=== PATIENT | female | born 1950 | race Caucasian/White ===

== ENCOUNTER 2019-11-13 13:29 | Inpatient (IN) | payer MEDICARE, SELFPAY ==
[2019-11-13] VITALS (15 sets, daily range): BP systolic 117–184; BP diastolic 67–144; PULSE 48–64; RESP 12–22; TEMP 36.7–36.9; O2SAT 93–99; BMI 22.4
--- NOTE | 2019-11-13 | CT_ITS ---
WS: [id number] CT HEAD NONCONTRAST HISTORY: STROKE LIKE SYMPTOMS TECHNIQUE: Contiguous axial imaging performed through the brain in 2.5 mm imaging. Bone and soft tiss ue windows. Sagittal and coronal reformats reviewed. All CT scans at [facility] use at ast one of these dose optimization techniques: automated exposure control; mA and/or kV adjustment pe r patient size (includes targeted exams where dose is matched to clinical indication); or iterative r econstruction. DLP: 686.06 mGy-cm. COMPARISON: 02/21/2019 No acute intracranial hemorrhage, midline shift or mass effect. Mild atrophy and prior remote lacunar infarct in the posterior LEFT frontal lobe. Ventricles: Normal size with no hydrocephalus. No inferior displacement of cerebellar tonsils. Paranasal sinuses: As visualized are clear. Mastoid air cells: Well pneumatized. Calvarium and scalp: Skull is intact with no soft tissue edema or swelling. Notified Thomas Zimmer DO at 11/13/2019 1:[address]/CT head wo con* [id number] IMPRESSION: 1. No acute intracranial hemorrhage or edema. 2. Mild atrophy and remote posterior LEFT frontal lacunar infarct.
--- NOTE | 2019-11-13 13:37 | ED_ITS ---
Entered by Denise Strauss, acting as scribe for Thomas Zimmer DO HPI - Neuro Symptoms/Deficit General: Chief Complaint: Neuro Symptoms/Deficit Stated Complaint: Stroke symptoms Time Seen by Provider: 11/13/19 13:45 Source: patient and family Mode of arrival: wheelchair Limitations: no limitations History of Present Illness: HPI Narrative: 68 yo female presents with stroke like symptoms. per spouse the pt was doing laundry then she had a hard time finding her words so they got in the car and drove to ED. per spouse the pt symptoms got better then worse by the time she got to the ED. pt is tearful. spouse denies any other symptoms. Onset (ago): hour(s) Last Observed Normal: 12:31 Timing confirmed by: family member Location: speech Severity: moderate Quality: constant Relieving factors: none Exacerbating factors: none Context: sudden onset Associated symptoms: Deny chest pain, malaise, nausea or vomiting Review of Systems General: Reports: 10 or more systems reviewed and unremarkable except in HPI and below Const: Denies: fever, chills, body aches, change in appetite, fatigue or mal aise ENMT: Denies: throat pain, ear pain, nasal discharge or nasal congestion Card: Denies: chest pain, edema, shortness of breath on exertion or shortness of breath when lying down Resp: Denies: shortness of breath, productive cough or non-productive cough GI: Denies: abdominal pain, nausea, vomiting, vomiting blood, coffee grounds in vomit, diarrhea, constipation, bloating, blood in stool or black tarry stool : Denies: flank pain, difficulty urinating, painful urination, urinary frequency or urinary urgency Skin/Breast: Denies: rash or itching Neuro: Reports: other (coulgnt form words) PFS ED PFSH: Medical History (Updated 11/15/19 @ 00:00 by ) HLD (hyperlipidemia) Hypothyroidism Surgical History H/O thyroidectomy Hx of tubal ligation Family History Mother Stroke Sister Stroke Social History Smoking and tobacco status: never smoked Alcohol intake: current Alcohol intake frequency: few times a week Alcohol type: wine Lives independently: Yes Marital status: NIH stroke score NIHSS: Level Of Consciousness - 1a: 0 Level Of Consciousness Questions - 1b: Both Correct Level Of Consciousness Commands - 1c: Both Correct Best Gaze - 2: Normal Visual Huerta - 3: No Visual Loss Facial Palsy - 4: Normal Motor Arm Right - 5: No Drift Motor Arm Left - 5: No Drift Motor Leg Right - 6: No Drift Motor Leg Left - 6: No Drift Limb Ataxia - 7: Absent Sensory - 8: Normal Best Language - 9: Mild/Moderate Aphasia Dysarthia - 10: Mild/Moderate Dysarthia Extinction And Inattention - 11: 0 Score: Total Score: 2 Physical Exam Const: COMMON NORMALS: no apparent distress GENERAL APPEARANCE: cooperative and comfortable ORIENTATION/CONSCIOUSNESS: Yes awake, Yes oriented to person, Yes oriented to place and Yes oriented to time HENMT: COMMON NORMALS: normocephalic, head/scalp atraumatic, hearing grossly normal bilaterally, external ears normal, EAC's normal, TM's normal bilaterally, nasal mucous membranes and turbinates normal, moist oral mucous membranes and oropharynx normal HEAD & SCALP: normocephalic and atraumatic NOSE: nasal mucous membranes and turbinates normal EXTERNAL EAR: Yes external ears normal EXTERNAL AUDITORY CANAL: EAC's normal TYMPANIC MEMBRANE: TM's normal bilaterally Eye: COMMON NORMALS: PERRL, EOMs intact bilaterally, conjunctivae normal and no scleral icterus CONJUNCTIVA: Yes conjunctivae normal PUPIL: Yes PERRL Neck/C-Spine: COMMON NORMALS: full ROM, no lymphadenopathy, supple and no JVD Lymph: LYMPHATIC: no lymphadenopathy noted and no lymphedema noted Resp: COMMON NORMALS: normal respiratory effort, no retractions, no use of accessory muscles and clear to auscultation bilaterally AUSCULTATION: clear to auscultation bilaterally Cardio: COMMON NORMALS: no JVD, regular rate, regular rhythm and no murmurs RATE: regular rate RHYTHM: regular rhythm GI: COMMON NORMALS: soft to palpation and no hepatosplenomegaly AU SCULTATION: Yes normoactive bowel sounds PALPATION: Yes soft, No tender, No guarding and Yes no hepatosplenomegaly Extremity: COMMON NORMALS: normal to inspection, normal capillary refill, no clubbing, cyanosis or edema, no calf tenderness and no pedal edema Neuro: SENSORIUM/ORIENTATION: Yes oriented to person, Yes oriented to place and Yes oriented to time Skin: COMMON NORMALS: no rashes or lesions noted GENERAL SKIN EXAM: no rashes or lesions noted Course ED course: Patient appears to have had a mild stroke. Dr. Hagen came and seen the patient did a stroke scoring and she advised giving TPA. TPA was admitted per protocols and patient be admitted to the hospitalist. Vital Signs: Vital signs: Vital Signs Temperature 97.9 F 11/14/19 15:29 Pulse Rate 63 11/14/19 15:29 Respiratory Rate 20 H 11/14/19 15:29 Blood Pressure 122/64 11/14/19 15:29 Pulse Oximetry 97 11/14/19 15:29 MDM - Neuro Symptoms/Deficit Lab Data: Labs: Lab Results 11/13/19 11/13/19 11/13/19 Range/Units 13:35 13:35 13:35 WBC 5.2 (4.0-10.0) 10^3/ uL RBC 4.72 (4.1-5.3) 10^6/u L Hgb 14.6 (11.5-15.3) g/dL Hct 44.4 (37.0-47.0) % MCV 94.1 (81-99) fL MCH 30.9 (28.0-34.0) pg MCHC 32.9 (30.0-36.0) g/dL RDW 11.9 L (12.1-15.1) % Plt Count 241 (130-400) 10^3/c mm MPV 9.7 (7.4-10.4) fL Neut % (Auto) 55.5 % Lymph % (Auto) 30.5 % Bartow % (Auto) 8.8 % Eos % (Auto) 4.2 % Baso % (Auto) 0.8 % Neut # (Auto) 2.9 (1.8-7.7) 10^3/u L Lymph # (Auto) 1.6 (0.8-4.8) 10^3/u L Bartow # (Auto) 0.5 (0.2-0.9) 10^3/u L Eos # (Auto) 0.2 (0.0-0.8) 10^3/u L Baso # (Auto) 0.0 (0.0-0.1) 10^3/u L Nucleated RBC % (a uto) 0 % Nucleated RBCs # 0.0 /100WBC PT 14.30 H (10.5-13.3) SECO NDS INR 1.08 (0.8-1.2) APTT 31.7 (23.9-36.7) SECO NDS Sodium 141 (136-145) mmol/L Potassium 4.3 (3.5-5.1) mmol/L Chloride 103 (98-107) mmol/L Carbon Dioxide 32 H (22-29) mmol/L Anion Gap 10.3 (5-19) BUN 17 (8-23) mg/dL Creatinine 1.1 H (0.5-0.9) mg/dL GFR Calculation 49.1 L (90-130) mL/min Glucose 122 H (65-115) mg/dL POC Glucose (70-110) mg/dL Estimat Average Gl ucose Hemoglobin A1c (4.0-6.0) % Calculated Osmolal ity 290 (285-295) mOsm/k g Calcium 9.6 (8.5-10.5) mg/dL Total Bilirubin 0.8 (0.15-1.2) mg/dL AST 27 (0-32) U/L ALT 20 (0-33) U/L Alkaline Phosphata se 108 H (35-105) IU/L Total Protein 7.9 (6.6-8.7) g/dL Albumin 4.4 (3.5-5.2) g/dL Globulin 3.5 (1.3-4.6) g/dL TSH (0.27-4.20) uIU/ mL Urine Color (Yellow) Urine Appearance (CLEAR) Urine pH (5-7) Ur Specific Gravit y (1.005-1.030) Urine Protein (Negative) Urine Glucose (UA) (Normal) Urine Ketones (Negative) Urine Blood (Negative) Urine Nitrate (Negative) Urine Bilirubin (NEGATIVE) Urine Urobilinogen (Negative) mg/dL Ur Leukocyte Stacie ase (Negative) Urine RBC (0-2) /hpf Urine WBC (0-5) /hpf Ur Squamous Epith Cells (0-5) Amorphous Sediment Urine Bacteria (NONE) Urine Opiates Scre en (Negative) ng/mL Ur Barbiturates Sc reen (Negative) ng/mL Ur Phencyclidine S crn (Negative) ng/mL Ur Amphetamines Sc reen (Negative) ng/mL U Benzodiazepines Scrn (Negative) ng/mL Urine Cocaine Scre en (Negative) ng/mL U Marijuana (THC) Screen (Negative) ng/mL 11/13/19 11/13/19 11/13/19 Range/Units 13:35 13:48 13:55 WBC (4.0-10.0) 10^3/ uL RBC (4.1-5.3) 10^6/u L Hgb (11.5-15.3) g/dL Hct (37.0-47.0) % MCV (81-99) fL MCH (28.0-34.0) pg MCHC (30.0-36.0) g/dL RDW (12.1-15.1) % Plt Count (130-400) 10^3/c mm MPV (7.4-10.4) fL Neut % (Auto) % Lymph % (Auto) % Bartow % (Auto) % Eos % (Auto) % Baso % (Auto) % Neut # (Auto) (1.8-7.7) 10^3/u L Lymph # (Auto) (0.8-4.8) 10^3/u L Bartow # (Auto) (0.2-0.9) 10^3/u L Eos # (Auto) (0.0-0.8) 10^3/u L Baso # (Auto) (0.0-0.1) 10^3/u L Nucleated RBC % (a uto) % Nucleated RBCs # /100WBC PT (10.5-13.3) SECO NDS INR (0.8-1.2) APTT (23.9-36.7) SECO NDS Sodium (136-145) mmol/L Potassium (3.5-5.1) mmol/L Chloride (98-107) mmol/L Carbon Dioxide (22-29) mmol/L Anion Gap (5-19) BUN (8-23) mg/dL Creatinine (0.5-0.9) mg/dL GFR Calculation (90-130) mL/min Glucose (65-115) mg/dL POC Glucose 95 (70-110) mg/dL Estimat Average Gl ucose 120 Hemoglobin A1c 5.8 (4.0-6.0) % Calculated Osmolal ity (285-295) mOsm/k g Calcium (8.5-10.5) mg/dL Total Bilirubin (0.15-1.2) mg/dL AST (0-32) U/L ALT (0-33) U/L Alkaline Phosphata se (35-105) IU/L Total Protein (6.6-8.7) g/dL Albumin (3.5-5.2) g/dL Globulin (1.3-4.6) g/dL TSH 1.18 (0.27-4.20) uIU/ mL Urine Color (Yellow) Urine Appearance (CLEAR) Urine pH (5-7) Ur Specific Gravit y (1.005-1.030) Urine Protein (Negative) Urine Glucose (UA) (Normal) Urine Ketones (Negative) Urine Blood (Negative) Urine Nitrate (Negative) Urine Bilirubin (NEGATIVE) Urine Urobilinogen (Negative) mg/dL Ur Leukocyte Stacie ase (Negative) Urine RBC (0-2) /hpf Urine WBC (0-5) /hpf Ur Squamous Epith Cells (0-5) Amorphous Sediment Urine Bacteria (NONE) Urine Opiates Scre en (Negative) ng/mL Ur Barbiturates Sc reen (Negative) ng/mL Ur Phencyclidine S crn (Negative) ng/mL Ur Amphetamines Sc reen (Negative) ng/mL U Benzodiazepines Scrn (Negative) ng/mL Urine Cocaine Scre en (Negative) ng/mL U Marijuana (THC) Screen (Negative) ng/mL 11/13/19 11/13/19 Range/Units 14:46 14:46 WBC (4.0-10.0) 10^3/ uL RBC (4.1-5.3) 10^6/u L Hgb (11.5-15.3) g/dL Hct (37.0-47.0) % MCV (81-99) fL MCH (28.0-34.0) pg MCHC (30.0-36.0) g/dL RDW (12.1-15.1) % Plt Count (130-400) 10^3/c mm MPV (7.4-10.4) fL Neut % (Auto) % Lymph % (Auto) % Bartow % (Auto) % Eos % (Auto) % Baso % (Auto) % Neut # (Auto) (1.8-7.7) 10^3/u L Lymph # (Auto) (0.8-4.8) 10^3/u L Bartow # (Auto) (0.2-0.9) 10^3/u L Eos # (Auto) (0.0-0.8) 10^3/u L Baso # (Auto) (0.0-0.1) 10^3/u L Nucleated RBC % (a uto) % Nucleated RBCs # /100WBC PT (10.5-13.3) SECO NDS INR (0.8-1.2) APTT (23.9-36.7) SECO NDS Sodium (136-145) mmol/L Potassium (3.5-5.1) mmol/L Chloride (98-107) mmol/L Carbon Dioxide (22-29) mmol/L Anion Gap (5-19) BUN (8-23) mg/dL Creatinine (0.5-0.9) mg/dL GFR Calculation (90-130) mL/min Glucose (65-115) mg/dL POC Glucose (70-110) mg/dL Estimat Average Gl ucose Hemoglobin A1c (4.0-6.0) % Calculated Osmolal ity (285-295) mOsm/k g Calcium (8.5-10.5) mg/dL Total Bilirubin (0.15-1.2) mg/dL AST (0-32) U/L ALT (0-33) U/L Alkaline Phosphata se (35-105) IU/L Total Protein (6.6-8.7) g/dL Albumin (3.5-5.2) g/dL Globulin (1.3-4.6) g/dL TSH (0.27-4.20) uIU/ mL Urine Color Yellow (Yellow) Urine Appearance Clear (CLEAR) Urine pH 5 (5-7) Ur Specific Gravit y 1.020 (1.005-1.030) Urine Protein Neg (Negative) Urine Glucose (UA) Norm (Normal) Urine Ketones Negative (Negative) Urine Blood Neg (Negative) Urine Nitrate Negative (Negative) Urine Bilirubin Neg (NEGATIVE) Urine Urobilinogen Norm (Negative) mg/dL Ur Leukocyte Stacie ase 1+ H (Negative) Urine RBC None (0-2) /hpf Urine WBC 15-25 H (0-5) /hpf Ur Squamous Epith Cells 10-15 H (0-5) Amorphous Sediment Not Reportable Urine Bacteria 1+ H (NONE) Urine Opiates Scre en Negative (Negative) ng/mL Ur Barbiturates Sc reen Negative (Negative) ng/mL Ur Phencyclidine S crn Negative (Negative) ng/mL Ur Amphetamines Sc reen Negative (Negative) ng/mL U Benzodiazepines Scrn Negative (Negative) ng/mL Urine Cocaine Scre en Negative (Negative) ng/mL U Marijuana (THC) Screen Negative (Negative) ng/mL Discharge Plan Discharge Admit Provider: Kleber Fernandes Condition: Stable Discharge Orders: Discharge Order (Routine); Ordered 11/14/19 Ordered By: Kleber Fernandes Discharge Diet: Cardiac Discharge Activity: Increase activity as tolerated and As per PT/OT instructions Discharge Date/Time: 11/13/19 20:38 Coding Level of Care Code ED Smasher Hand for Chg Fwd Exam Comprehensive The documentation recorded by the Carlos A lweis Bridget Annette, accurately reflects the service I personally performed and the decisions made by Mesha melchor Curtis L, DO Nov 13, 2019 13:29
[2019-11-13] MEDS: labetalol 5 mg/mL SDV 20mL 10 MG IVP (13:47)
--- NOTE | 2019-11-13 14:09 | PC.NURSE ---
TPA BOLUS WAS 6.9MLS GIVEN OVER 1 MINUTE. WASTED 23.8MLS WASTED
--- NOTE | 2019-11-13 14:15 | P.PNCC_ITS ---
Stroke Alert Activation ED Arrival Date: 11/13/19 ED Arrival Time: 13:29 ED Physican at Bedside: 13:35 Last Known Normal/at Baseline: < 1 hour ago Other Last Known Well Infomation: I was called for stroke alert and immediately called the emergency department at 1335. I was informed that the patient was newly arrived and under the evaluation of Dr. Salvador. I asked to be called as soon as the state of the patient made it clear whether or not she was indicated to have a stroke. The inventory control coordinator call me at 1344 and informed me that the patient had new onset of a aphasia less than 1 hour ago. I came directly to the emergency room and stop to review her CAT scan on the monitor. I performed an NIH stroke scale while the inventory control coordinator administered labetalol because the patient's blood pressure was 140 diastolic. The room lights were dimmed and she was kept in a comfortable position. Her NIH stroke scale score was 11 because of right visual field cut, expressive and receptive a aphasia. She did not have a motor deficit. I spoke with her and with her about the risks and benefits of TPA. By then her blood pressure had come down to 140/90 and she received bolus of TPA at 1356. Her said that her last known normal time was 1245 or possibly as late as 1300 so she received TPA within an hour and 10 minutes of onset of symptoms. Stroke Alert Activated by: Triage Stroke Alert Activation Time: 13:35 Stroke MD @ Bedside Time: 13:35 NIH Stroke Scale Time: 13:45 NIH stroke score NIHSS: Level Of Consciousness - 1a: 0 Level Of Consciousness Questions - 1b: One Correct Level Of Consciousness Commands - 1c: One Correct Best Gaze - 2: Normal Visual Huerta - 3: Partial Hemianopia Facial Palsy - 4: Normal Motor Arm Right - 5: No Drift Motor Arm Left - 5: No Drift Motor Leg Right - 6: No Drift Motor Leg Left - 6: No Drift Limb Ataxia - 7: Absent Sensory - 8: Normal Best Language - 9: Mild/Moderate Aphasia Extinction And Inattention - 11: 0 Stroke Alert Data/Treatment Time to CT of Head: 13:39 CT Impression: Normal, Reviewed by me Stroke Risk Factors: hypertension (Normally not hypertensive) tPA Started Time: tPA Started - Time: 13:56 tPA Admin Prior to Arrival: No Patient & Family Educated on: Cause of Stroke, Risk Factors, Treament Plan, Prognosis, Stroke Education Booklet and tPA Risks/Benefits Standardized Stroke Orders Used: Yes Critical Care Time Critical Care Time: 30 - 74 mins A&P Assessment and plan (1) Left acute arterial ischemic stroke, MCA (middle cerebral artery): Acute stroke left middle cerebral artery, most likely embolic posterior branch with resultant receptive and expressive a aphasia and visual field cut. There may be anterior and posterior branch emboli based upon both receptive and expressive difficulty. She needs extensive cardiac evaluation because of lack of risk factors and should have 20-day event monitor as well as echocardiogram, outpatient VERONICA and MRI with MRA that can be done after discharge. I went over risk factors for stroke with the patient and her , went over the vasculature and took time to answer questions about TPA and anticipated testing. Status: Acute Code(s): I63.512 - Cerebral infarction due to unspecified occlusion or stenosis of left middle cerebral artery Coding Level of Care Code Acute Electric Wheelchair Repairer for Cesilia Kitchen Diagnoses Left acute arterial ischemic stroke, MCA (middle cerebral artery) I63.512
--- NOTE | 2019-11-13 14:21 | ECG_ITS ---
Measurements Intervals [place] Rate: 56 P: 50 MO: 153 QRS: -13 QRSD: 98 T: 20 QT: 447 QTc: 434 SINUS BRADYCARDIA WITH OCCASIONAL ECTOPIC PREMATURE COMPLEXES INCOMPLETE RIGHT BUNDLE BRANCH BLOCK [90+ ms QRS DURATION, TERMINAL R IN V1/V2, 40+ ms S IN I/aVL/V4/V5/V6] MINIMAL VOLTAGE CRITERIA FOR LVH, CONSIDER NORMAL VARIANT [MEETS CRITERIA IN OF: R(aVL), S(V1), R(V5), R(V5/V6)+S(V1)] ANTEROSEPTAL MYOCARDIAL INFARCTION , OF INDETERMINATE AGE [40+ ms Q WAVE IN V1-V4 V4] No previous ECG available for comparison Electronically Signed On 11-13-2019 19:25:11 CDT by Karthik Núñez M.D. [email or web address]
[2019-11-13 14:29] LABS: Basophils % 0.8 %; Eosinophils # 0.2 10^3/uL (0.0-0.8); Eosinophils % 4.2 %; Hematocrit 44.4 % (37.0-47.0); Hemoglobin 14.6 g/dL (11.5-15.3); Lymphocytes # 1.6 10^3/uL (0.8-4.8); Lymphocytes % 30.5 %; Mean Corpuscular HGB Conc 32.9 g/dL (30.0-36.0); Mean Corpuscular Hemoglobin 30.9 pg (28.0-34.0); Mean Corpuscular Volume 94.1 fL (81-99); Mean Platelet Volume 9.7 fL (7.4-10.4); Monocytes # 0.5 10^3/uL (0.2-0.9); Monocytes % 8.8 %; Neutrophils # 2.9 10^3/uL (1.8-7.7); Neutrophils % 55.5 %; Nucleated Red Blood Cells % 0 %; Platelet Count 241 10^3/cmm (130-400); Red Blood Count 4.72 10^6/uL (4.1-5.3); Red Cell Distribution Width 11.9 % (12.1-15.1); White Blood Count 5.2 10^3/uL (4.0-10.0)
[2019-11-13 14:37] LABS: INR 1.08 (0.8-1.2)
[2019-11-13 14:38] LABS: Partial Thromboplastin Time 31.7 SECONDS (23.9-36.7)
[2019-11-13 14:46] LABS: Alanine Aminotransferase 20 U/L (0-33); Albumin Level 4.4 g/dL (3.5-5.2); Alkaline Phosphatase 108 IU/L (35-105); Anion Gap 10.3 (5-19); Aspartate Amino Transferase 27 U/L (0-32); Blood Urea Nitrogen 17 mg/dL (8-23); Calcium 9.6 mg/dL (8.5-10.5); Carbon Dioxide 32 mmol/L (22-29); Chloride 103 mmol/L (98-107); Globulin 3.5 g/dL (1.3-4.6); Glomerular Filtration Rate 49.1 mL/min (90-130); Glucose 122 mg/dL (65-115); Osmolality Calculated 290 mOsm/kg (285-295); Potassium 4.3 mmol/L (3.5-5.1); Sodium 141 mmol/L (136-145); Total Bilirubin 0.8 mg/dL (0.15-1.2); Total Protein 7.9 g/dL (6.6-8.7)
[2019-11-13 14:56] LABS: Bilirubin Urine Neg (NEGATIVE); Blood Urine Neg (Negative); Glucose Urine UA Norm (Normal); Ketones Urine Negative (Negative); Nitrate Urine Negative (Negative); Protein Urine Neg (Negative); Urine Appearance Clear (CLEAR); Urine Color Yellow (Yellow); Urobilinogen Urine Norm (Negative); pH Urine 5 (5-7)
[2019-11-13 15:00] LABS: Add Urine Microscopic? YES
[2019-11-13 15:01] LABS: Leukocyte Esterase Urine 1+ (Negative)
[2019-11-13 15:04] LABS: WBC Urine 15-25 /hpf (0-5)
[2019-11-13 15:05] LABS: Amphetamines Screen Urine Negative (Negative); Bacteria Urine 1+; Barbiturates Screen Urine Negative (Negative); Benzodiazepines Screen Urine Negative (Negative); Cocaine Screen Urine Negative (Negative); Opiate Screen Urine Negative (Negative); PCP Screen Urine Negative (Negative); THC Screen Urine Negative (Negative)
[2019-11-13 15:06] LABS: Add Urine Culture? No
--- NOTE | 2019-11-13 16:09 | PC.NURSE ---
See stroke packet for neuro assessment.
--- NOTE | 2019-11-13 16:10 | PC.NURSE ---
See stroke packet for neuro assessment.
[2019-11-13 16:48] LABS: Glucose Point of Care 95 mg/dL (70-110)
--- NOTE | 2019-11-13 18:00 | PM.HP ---
Providers/Chief Complaint Admitting Physician: Kleber Fernandes Primary Care Provider: Giancarlo Bishop MD Chief Complaint: Stroke symptoms History of Present Illness Shauna Birmingham is a 68 year old pleasant lady with history of hyperlipidemia, on prophylactic 81 mg aspirin dose, hypothyroidism is being admitted after presenting with a word finding difficulty noticed by her earlier during the day, around 1 PM. She was assessed by neurology in ER with finding of NIHSS of 11 with right-sided visual deficit in addition to aphasia. Blood pressure was elevated on presentation, but came down with only conservative measures. CT of the head without bleeding. She underwent treatment with TPA, and is being admitted for post treatment monitoring. In the interim her symptoms of showed improvement. She is feeling better. Denies any headache. States that she is bothered by tightness of the blood pressure cuff. She reports history of CVA in her family including her mother and sister. She says that she was started on aspirin prophylactically by her doctor, and does not have history of CVA, although does not always take aspirin every time. Review of Systems Const: Denies: fever, chills, body aches or malaise Eyes: Denies: change in vision or eye redness ENMT: Denies: throat pain, oral sores/lesions or ear pain Card: Denies: chest pain, edema, pre-syncope or shortness of breath on exertion Resp: Denies: shortness of breath, productive cough, change in phlegm color or coughing up blood GI: Denies: abdominal pain, nausea, vomiting, diarrhea, constipation, blood in stool or black tarry stool : Denies: flank pain, urinary frequency or blood in urine Musc: Denies: back pain, joint swelling or redness Skin/Breast: Denies: rash, sores or new lesion Neuro: Reports: difficulty communicating thoughts; Denies: headache, numbness in extremities, weakness in extremities, dizziness, confusion or seizure-like activity Endo: Denies: excessive urination or excessive thirst Nick/Lymph: Denies: easy bleeding or purpura All/Imm: Denies: hives, throat swelling or tongue swelling Medications/Allergies Home Medications Medication Instructions Recorded Confirmed Last Taken Type atorvastatin 40 mg PO DAILY 11/13/19 11/13/19 11/12/19 History cetirizine [Zyrtec] 5 mg PO DAILY PRN 11/13/19 11/13/19 Unknown History levothyroxine 50 mcg PO DAILY 11/13/19 11/13/19 11/12/19 History Allergies Allergy/AdvReac Type Severity Reaction Status Date / Time No Known Allergies Allergy Verified 11/13/19 13:58 PFSH Acute PFSH: Medical History (Updated 11/13/19 @ 18:51 by Kleber Fernandes MD) HLD (hyperlipidemia) Hypothyroidism Surgical History H/O thyroidectomy Hx of tubal ligation Family History Mother Stroke Sister Stroke Social History Smoking and tobacco status: never smoked Alcohol intake: current Alcohol intake frequency: few times a week Alcohol type: wine Substance/Drug Use: never Lives independently: Yes Marital status: Vitals/I&O/Wt Last Vital Signs Temp 98.1 F 11/13/19 13:40 Pulse 56 L 11/13/19 17:27 Resp 16 11/13/19 15:47 BP 146/74 11/13/19 17:27 Pulse Ox 99 11/13/19 17:27 Weight last 48 hrs Weight 57.606 kg Physical Exam Const: COMMON NORMALS: no apparent distress and oriented x3 OTHER: Comfortable, pleasant. Cooperative. is at bedside. HENMT: COMMON NORMALS: oropharynx normal Neck/C-Spine: COMMON NORMALS: no JVD Resp: COMMON NORMALS: normal respiratory effort and clear to auscultation bilaterally AUSCULTATION: clear to auscultation bilaterally Cardio: COMMON NORMALS: no JVD, regular rhythm, S1 normal heart sound, S2 normal heart sound and no murmurs RHYTHM: regular rhythm HEART SOUNDS: S1 normal and S2 normal GI: COMMON NORMALS: normal to inspection, nondistended, normoactive bowel sounds, soft to palpation and non-tender PALPATION: Yes soft Extremity: COMMON NORMALS: no joint enlargement and no pedal edema Neuro: COMMON NORMALS: oriented x3 and moves all extremities OTHER: Still has mild to moderate a aphasia, although reports with improvement. Improvement in visual field deficits. Sensation intact. No drift. Full power and symmetrical bilaterally. No neglect. Skin: COMMON NORMALS: no rashes or lesions noted GENERAL SKIN EXAM: no rashes or lesions noted Data : 11/13/19 13:35 11/13/19 13:35 A&P Assessment and plan (1) Left acute arterial ischemic stroke, MCA (middle cerebral artery): Status post TPA. Admit to ICU for monitoring. Target blood pressure less than 180/105. Monitor on telemetry. Check A1c. Increase statin dose to 80 mg. Speech therapy assessment. Once 24 hours outside TPA, repeat CT head. Case discussed with neurologist. Continue aspirin. Add Plavix. Recommendation for additional outpatient work-up with MRI, MRA, cardiac monitoring, VERONICA. Follow-up with neurology in office. Status: Acute Code(s): I63.512 - Cerebral infarction due to unspecified occlusion or stenosis of left middle cerebral artery (2) Hypothyroidism: Status: Chronic Code(s): E03.9 - Hypothyroidism, unspecified (3) HLD (hyperlipidemia): Status: Chronic Code(s): E78.5 - Hyperlipidemia, unspecified Attestations Medical Necessity Statement*: Due to acute CVA with TPA administration admission of over 2 midnights is likely to be needed. Coding Level of Care Code Acute Liner Machine Operator for Chg Fwd Diagnoses Left acute arterial ischemic stroke, MCA (middle cerebral artery) I63.512 Hypothyroidism E03.9 HLD (hyperlipidemia) E78.5
--- NOTE | 2019-11-13 19:04 | PC.NURSE ---
Report called to Alfa Otoole, will call when room is ready.
[2019-11-13 19:17] LABS: Estmated Average Glucose 120; Hemoglobin A1C 5.8 % (4.0-6.0)
[2019-11-13] MEDS: sodium chloride 0.9% 1,000 ML 100 ML IV (21:13)
[2019-11-13 21:29] LABS: Thyroid Stimulating Hormone 1.18 uIU/mL (0.27-4.20)
[2019-11-13] MEDS: acetaminophen 325 mg Tablet 650 MG PO (22:42)
--- NOTE | 2019-11-13 22:46 | PC.NURSE ---
patient complains of a headache talked to Dr. Gallagher asked to give a bedside swallow test to ensure she could swallow oral medications for relief. gave patient spoonful of ice chips and then a few milliliters of water no issues noted no coughing gagging or difficulty gave patient 650mg of Tylenol PO still no issues. will continue to monitor
[2019-11-14] VITALS (24 sets, daily range): BP systolic 107–184; BP diastolic 58–92; PULSE 45–73; RESP 12–25; TEMP 36.6–37.1; O2SAT 93–98
[2019-11-14 04:21] LABS: Basophils % 0.6 %; Eosinophils # 0.1 10^3/uL (0.0-0.8); Eosinophils % 1.9 %; Hematocrit 39.4 % (37.0-47.0); Lymphocytes # 1.1 10^3/uL (0.8-4.8); Lymphocytes % 20.3 %; Mean Platelet Volume 10.2 fL (7.4-10.4); Monocytes # 0.4 10^3/uL (0.2-0.9); Monocytes % 7.1 %; Neutrophils # 3.7 10^3/uL (1.8-7.7); Neutrophils % 69.7 %; Nucleated Red Blood Cells % 0 %; Platelet Count 195 10^3/cmm (130-400); Red Blood Count 4.19 10^6/uL (4.1-5.3); Red Cell Distribution Width 11.9 % (12.1-15.1); White Blood Count 5.3 10^3/uL (4.0-10.0)
[2019-11-14 04:41] LABS: Anion Gap 14.8 (5-19); Blood Urea Nitrogen 13 mg/dL (8-23); Calcium 8.5 mg/dL (8.5-10.5); Carbon Dioxide 21 mmol/L (22-29); Chloride 107 mmol/L (98-107); Glomerular Filtration Rate 61.9 mL/min (90-130); Glucose 107 mg/dL (65-115); Osmolality Calculated 285 mOsm/kg (285-295); Potassium 3.8 mmol/L (3.5-5.1); Sodium 139 mmol/L (136-145)
[2019-11-14] MEDS: levothyroxine 50 mcg Tablet PO (07:38)
[2019-11-14] MEDS: sodium chloride 0.9% 1,000 ML 100 ML IV (07:39)
--- NOTE | 2019-11-14 07:42 | USCV_ITS ---
Vinnie Shauna Age: 68 Gender: F : 1950 Exam Date: 11/14/2019 08:01 Ordering Phys: Kleber Fernandes MD Technologist: Kylie Boyd [place]am Location[place] [facility] [place]ication: CVA Risk Factors: Previous Vascular Surgery: None Right Brachial BP: / Left Brachial BP: / Right Left Velocity (cm/s) Spectral Plaque Velocity (cm/s) Spectral Plaque Syst/Diast Broadening Syst/Diast Broadening 52.90/ 14.90 Prox CCA 59.80 / 17.00 46.20/ 13.10 Mid CCA 40.40 / 13.70 44.20/ 17.30 Distal CCA 41.70 / 8.90 44.50/ 16.20 Prox ICA 53.60 / 22.30 54.20/ 17.00 Mid ICA 54.40 / 20.90 50.10/ 21.80 Distal ICA 84.20 / 28.30 50.90 ECA 64.80 1.17 ICA/CCA 2.08 Antegrade Vertebral Antegrade 31.50/ 15.40 cm/s 50.70/ 9.70 cm/s Tri Subclavian Tri 78.40 65.50 CONCLUSIONS Right ICA stenosis <50%. Left ICA stenosis <50%. Normal antegrade Doppler flow noted in the right vertebral artery. Normal antegrade Doppler flow noted in the left vertebral artery. Gary Da Silva MD (Electronically Signed) Final Date: 14 November 2019 09:20 S
--- NOTE | 2019-11-14 13:30 | CT_ITS ---
WS: [id number] CT HEAD TECHNIQUE: Noncontrast CT of the head obtained from the skullbase to the vertex. CLINICAL INFORMATION: CVA COMPARISON: November 13, 2019 DLP: 690.[address] scans at [facility] use at least one of these dose optimization techniques: automat ed exposure control; mA and/or kV adjustment per patient size (includes targeted exams where dose is matched to clinical indication); or iterative reconstruction. FINDINGS: No evidence of intracranial hemorrhage or mass effect. Ventricular system and basal cisterns are lay nt. Wedge-shaped left parietal area of low-attenuation change extending to the cortex consistent with ischemia. This measures approximately 1.8 x 2.1 CM. Findings consistent with subacute ischemia. No s ignificant mass effect or midline shift. Chronic lacunar infarct left posterior frontal lobe unchange d. Paranasal sinuses and mastoid air cells well aerated. Intracranial vascular calcification.. CT/CT head wo con* [id number] IMPRESSION: 1. No evidence of intracranial hemorrhage 2. Wedge-shaped area of low-attenuation change in the left parietal lobe exten ding to the cortex is new from yesterday consistent with subacute ischemia. Thi s measures 2.1 x 1.8 cm. 3. Chronic infarct left posterior frontal lobe.
--- NOTE | 2019-11-14 14:40 | P.DS_ITS ---
Discharge Providers Date of Admission: 11/13/19 16:10 Date of Discharge: November 14, 2019 Attending Provider at Admission: Kleber Fernandes Attending Provider at Discharge: Kleber Fernandes Primary Care Provider: Giancarlo Bishop MD Diagnoses at Discharge Discharge Diagnosis (1) Left acute arterial ischemic stroke, MCA (middle cerebral artery): Status: Acute (2) Hypothyroidism: Status: Chronic (3) HLD (hyperlipidemia): Status: Chronic Reason for Visit Reason for Visit: Reason For Visit: Stroke symptoms Hospital Course Hospital Course: Very pleasant 68-year-old lady with history of hypothyroidism, HLD, on prophylactic aspirin 81 mg was admitted and managed after presenting with CVA, with sudden onset a aphasia and visual field deficit, with finding of NIHSS of 11 on presentation, CT head without bleeding. Was assessed by stroke team neurologist, and treated with TPA, with unremarkable course thereafter. With fairly good improvement in symptoms of a aphasia, only minimal residual, but with residual visual deficit. Per discussion with neurology started on dual antiplatelet at this time. For additional evaluation due to concern for possible cryptogenic stroke as recommended per neurology she is going to be set up with event monitor under supervision of Dr. Núñez, VERONICA, as well as MRI and MRA brain. Carotid Doppler in the hospital unremarkable. No evidence of atrial fibrillation. Her dose of statin is increased. Today she is feeling well, and happy to return home. There was no bleeding on follow-up CT of the head. She is referred to neurology in office for follow-up of the requested studies. She does also report occasional tinnitus, some hearing loss, and suggestion of follow-up with ENT, consideration of hearing test was suggested to her to be discussed with her primary care provider. She was told not to drive until peripheral visual kowalski can be reassessed at [facility]. Physical Exam Const: COMMON NORMALS: no apparent distress and oriented x3 OTHER: Comfortable, pleasant. Cooperative. is at bedside. HENMT: COMMON NORMALS: oropharynx normal Neck/C-Spine: COMMON NORMALS: no JVD Resp: COMMON NORMALS: normal respiratory effort and clear to auscultation bilaterally AUSCULTATION: clear to auscultation bilaterally Cardio: COMMON NORMALS: no JVD, regular rhythm, S1 normal heart sound, S2 normal heart sound and no murmurs RHYTHM: regular rhythm HEART SOUNDS: S1 normal and S2 normal GI: COMMON NORMALS: normal to inspection, nondistended, normoactive bowel sounds, soft to palpation and non-tender PALPATION: Yes soft Extremity: COMMON NORMALS: no joint enlargement and no pedal edema Neuro: COMMON NORMALS: oriented x3 and moves all extremities OTHER: Mild aphasia. Visual field deficits. Sensation intact. No drift. Full power and symmetrical bilaterally. No neglect. Skin: COMMON NORMALS: no rashes or lesions noted GENERAL SKIN EXAM: no rashes or lesions noted Discharge Data Data Completed and Pending: Completed Studies During Hospitalization Category Date Time Status CT head wo con* 7 0450 Routine Cat Scan 11/14/19 13:[address] head wo con* 7 0450 Urgent Cat Scan 11/13/19 Completed CV carotid duplex BI* [id number] Routine Ultrasound 11/14/19 07:42 Completed Labs from last 24 hours 11/14/19 11/14/19 11/13/19 03:50 03:50 14:46 WBC 5.3 RBC 4.19 Hgb 13.0 Hct 39.4 MCV 94.0 MCH 31.0 MCHC 33.0 RDW 11.9 L Plt Count 195 MPV 10.2 Neut % (Auto) 69.7 Lymph % (Auto) 20.3 Esmeralda % (Auto) 7.1 Eos % (Auto) 1.9 Baso % (Auto) 0.6 Neut # (Auto) 3.7 Lymph # (Auto) 1.1 Esmeralda # (Auto) 0.4 Eos # (Auto) 0.1 Baso # (Auto) 0.0 Nucleated RBC % (a uto) 0 Nucleated RBCs # 0.0 Sodium 139 Potassium 3.8 Chloride 107 Carbon Dioxide 21 L Anion Gap 14.8 BUN 13 Creatinine 0.9 GFR Calculation 61.9 L Glucose 107 POC Glucose Estimat Average Gl ucose Hemoglobin A1c Calculated Osmolal ity 285 Calcium 8.5 Total Bilirubin AST ALT Alkaline Phosphata se Total Protein Albumin Globulin TSH Urine Color Urine Appearance Urine pH Ur Specific Gravit y Urine Protein Urine Glucose (UA) Urine Ketones Urine Blood Urine Nitrate Urine Bilirubin Urine Urobilinogen Ur Leukocyte Stacie ase Urine RBC Urine WBC Ur Squamous Epith Cells Amorphous Sediment Urine Bacteria Urine Opiates Scre en Negative Ur Barbiturates Sc reen Negative Ur Phencyclidine S crn Negative Ur Amphetamines Sc reen Negative U Benzodiazepines Scrn Negative Urine Cocaine Scre en Negative U Marijuana (THC) Screen Negative 11/13/19 11/13/19 11/13/19 14:46 13:55 13:48 WBC RBC Hgb Hct MCV MCH MCHC RDW Plt Count MPV Neut % (Auto) Lymph % (Auto) Esmeralda % (Auto) Eos % (Auto) Baso % (Auto) Neut # (Auto) Lymph # (Auto) Esmeralda # (Auto) Eos # (Auto) Baso # (Auto) Nucleated RBC % (a uto) Nucleated RBCs # Sodium Potassium Chloride Carbon Dioxide Anion Gap BUN Creatinine GFR Calculation Glucose POC Glucose 95 Estimat Average Gl ucose Hemoglobin A1c Calculated Osmolal ity Calcium Total Bilirubin AST ALT Alkaline Phosphata se Total Protein Albumin Globulin TSH 1.18 Urine Color Yellow Urine Appearance Clear Urine pH 5 Ur Specific Gravit y 1.020 Urine Protein Neg Urine Glucose (UA) Norm Urine Ketones Negative Urine Blood Neg Urine Nitrate Negative Urine Bilirubin Neg Urine Urobilinogen Norm Ur Leukocyte Stacie ase 1+ H Urine RBC None Urine WBC 15-25 H Ur Squamous Epith Cells 10-15 H Amorphous Sediment Not Reportable Urine Bacteria 1+ H Urine Opiates Scre en Ur Barbiturates Sc reen Ur Phencyclidine S crn Ur Amphetamines Sc reen U Benzodiazepines Scrn Urine Cocaine Scre en U Marijuana (THC) Screen 11/13/19 11/13/19 13:35 13:35 WBC RBC Hgb Hct MCV MCH MCHC RDW Plt Count MPV Neut % (Auto) Lymph % (Auto) Esmeralda % (Auto) Eos % (Auto) Baso % (Auto) Neut # (Auto) Lymph # (Auto) Esmeralda # (Auto) Eos # (Auto) Baso # (Auto) Nucleated RBC % (a uto) Nucleated RBCs # Sodium 141 Potassium 4.3 Chloride 103 Carbon Dioxide 32 H Anion Gap 10.3 BUN 17 Creatinine 1.1 H GFR Calculation 49.1 L Glucose 122 H POC Glucose Estimat Average Gl ucose 120 Hemoglobin A1c 5.8 Calculated Osmolal ity 290 Calcium 9.6 Total Bilirubin 0.8 AST 27 ALT 20 Alkaline Phosphata se 108 H Total Protein 7.9 Albumin 4.4 Globulin 3.5 TSH Urine Color Urine Appearance Urine pH Ur Specific Gravit y Urine Protein Urine Glucose (UA) Urine Ketones Urine Blood Urine Nitrate Urine Bilirubin Urine Urobilinogen Ur Leukocyte Stacie ase Urine RBC Urine WBC Ur Squamous Epith Cells Amorphous Sediment Urine Bacteria Urine Opiates Scre en Ur Barbiturates Sc reen Ur Phencyclidine S crn Ur Amphetamines Sc reen U Benzodiazepines Scrn Urine Cocaine Scre en U Marijuana (THC) Screen Vitals: Last Vital Signs Temp 98.5 F 11/14/19 09:00 Pulse 52 L 11/14/19 14:00 Resp 18 11/14/19 14:00 BP 107/58 11/14/19 14:00 Pulse Ox 95 11/14/19 14:00 Discharge Plan Discharge Patient Disposition: Home, Self-Care Condition: Stable Prescriptions: New aspirin 81 mg tablet,delayed release (DR/EC) 81 mg PO DAILY Qty: 30 RF: 0 Plavix 75 mg tablet 75 mg PO DAILY Qty: 30 RF: 0 Continued Zyrtec 10 mg Tablet 5 mg PO DAILY PRN (Reason: ALLERGIES) RF: 0 levothyroxine 50 mcg tablet 50 mcg PO DAILY RF: 0 Changed atorvastatin 40 mg tablet 80 mg PO DAILY Qty: 60 RF: 0 Discharge Orders: Discharge Order (Routine); Ordered 11/14/19 Ordered By: Kleber Fernandes Other Ambulatory Orders: MR angio head wo con [id number] (Routine) Timeframe: 1 Week Facility: [facility] - Location: Radiology [facility] Ordered By: Kleber AU echo transesophageal (Routine) Timeframe: 1 Week Facility: [facility] - Location: Radiology Ordered By: Kleber AU cardiac event monitor (Routine) Timeframe: 1 Week Facility: [facility] - Location: Cardiac Diagnostic Laboratory Ordered By: Kleber Fernandes MR head wo/w con [id number] (Routine) Timeframe: 1 Week Facility: [facility] - Location: Radiology [facility] Ordered By: Kleber Fernandes Referrals: Betty Hagen MD [Physician] - 11/21/19 2:00 pm (CVA) Giancarlo Bishop MD [Primary Care Provider] - 11/20/19 1:50 pm (CVA) Discharge Diet: Cardiac Discharge Activity: Increase activity as tolerated and As per PT/OT instructions Patient Instructions: Aspirin (By mouth), Clopidogrel (By mouth), Heart Healthy Diet, Transesophageal Echocardiogram (GEN) Activity Restrictions/Additional Instructions: Do not drive until he can be reassessed by [facility] due to vision changes. If you experience any worsening of symptoms, any severe headache, or other abnormal symptoms, please seek medical attention immediately. He will be set up with monitor car operator, Dr. Núñez will be following up on this. Otherwise please follow-up with your neurologist Dr. Hagen, and with your primary care doctor regarding other studies which include MRI of your head and echocardiogram to assess for other risk factors of stroke. Discharge Date/Time: 11/14/19 15:45 Discharge Attestations Time Spent in Discharge Care*: greater than 30 min Quality Metrics Clinical Quality Measures During this hospital stay, did patient experience: Stroke Contraindication to Antithrombotic: Antithrombotic prescribed Contraindication to Anticoagulation: Overlap treatment not indicated Contraindication to Statin: Statin prescribed Coding Level of Care Code Acute Registered Vascular Technologist (Rvt) for Chg Fwd Diagnoses Left acute arterial ischemic stroke, MCA (middle cerebral artery) I63.512 Hypothyroidism E03.9 HLD (hyperlipidemia) E78.5
--- NOTE | 2019-11-14 15:37 | PC.OT ---
OT note: From chart review pt had TPA and had to wait until after 1356. Therapist available and attempted OT eval at 1535 and pt was being discharged.
--- NOTE | 2019-11-14 15:49 | PC.NURSE ---
discharge patient instructed on follow up appointments and follow up tests/procedures. New medications, and medication changes discussed with patient as well as follow up appointment. Patient verbalized understanding. Patient taken to personal vehicle via wheelchair. patient tolerated well.
--- NOTE | 2019-11-16 12:03 | PC.NURSE ---
TPA order Placed order into system per IT request due to order not flowing across when medication was pulled under override from [facility].
== END 2019-11-14 15:45 | disposition home or self-care (01) | DRG 63 ==
LOC: ER 15:08 → ICU 17:31
PROVIDERS: Admitting Provider Internal Medicine; Emergency Provider Family Medicine; Family Provider Family Medicine; PCP Family Medicine; Visit Provider Internal Medicine
DX: I63.512 Cerebral infarction due to unspecified occlusion or stenosis of left middle cerebral artery (principal); E03.9 Hypothyroidism, unspecified; R47.01 Aphasia; E78.5 Hyperlipidemia, unspecified; Z79.82 Long term (current) use of aspirin; R29.701 NIHSS score 1; H53.8 Other visual disturbances
CPT/HCPCS: 12345; 36415; 36416; 70450; 80048; 80053; 80306; 81001; 81003; 82962; 83036; 84443; 85025; 85610; 85730; 92522; 92610; 93005; 93880; 96105; 96375; 99284; J2997; J3490; J7030

== ENCOUNTER → 2019-11-21 13:55 | Outpatient (BNVA) | payer MEDICARE, SELFPAY | PROVIDERS: Family Provider Family Medicine; PCP Family Medicine; Referring Provider Internal Medicine; Visit Provider Specialist | DX: Z86.73 Personal history of transient ischemic attack (TIA), and cerebral infarction without residual deficits (principal) | CPT/HCPCS: 99205 ==

== ENCOUNTER 2019-11-24 13:29 | Outpatient (CLI) | payer MEDICARE, SELFPAY ==
--- NOTE | 2019-11-24 13:46 | MR_ITS ---
WS: [id number] MRA HEAD TECHNIQUE: Axial 3-D TOF images obtained with axial images and axial, sagittal, and coronal 2-D refor matted images. CLINICAL INFORMATION: CVA COMPARISON: None. FINDINGS: Distal vertebral arteries are patent. Basilar artery is patent. Persistent right REDRAWER. Normal va scularity to the REDRAWER territory bilaterally. Both ICAs are patent at the skull base. Normal vascularity to the HARIKA and MCA territories bilaterally . Patent anterior communicating artery. No evidence of high-grade proximal stenosis or aneurysm. T1 hyperintensity in the left parietal occipital infarct bed consistent with subacute blood products. Notified Dr. Xiao DIAZ at 11/24/2019 2:53 PM. MR/MR angio head wo con [id number] IMPRESSION: 1. No evidence of high-grade proximal stenosis or aneurysm. 2. Small amount of T1 hyperintensity in the left parietal occipital lobe consi stent with subacute blood products in the infarct bed.
--- NOTE | 2019-11-24 13:46 | MR_ITS ---
WS: [id number] MRI HEAD WITHOUT CONTRAST TECHNIQUE: Sagittal T1, T2 axial, T2 axial FLAIR, axial and coronal T1 images, axial susceptibility w eighted imaging, axial diffusion weighted images, and coronal T2 images were obtained. CLINICAL INFORMATION: CVA COMPARISON: CT November 14, 2019 FINDINGS: Cortical and subcortical serpiginous area of partially restricted diffusion involving the left pariet o-occipital junction. Small amount of associated hemosiderin. Small amount of T1 hyperintensity consi stent with a tiny amount of blood products. Findings consistent with acute to subacute ischemia. Mild associated edema. No significant mass effect or midline shift. Mild small vessel changes. Moderate parenchymal volume loss. Normal posterior fossa. Normal vascular flow voids at the skull base. No extra-axial fluid collections. Mild mucosal thickening ethmoid air cells. Small retention cyst or polyp right maxillary sinus measur ing 9.4 mm. MR/MR head wo con* [id number] IMPRESSION: 1. Partially restricted diffusion involving the left parietal occipital juncti on most consistent with acute to subacute ischemia. This corresponds to the fin dings in the prior CT. 2. Small amount of associated T1 hyperintensity and hemosiderin consistent wit h a small amount of blood products. 3. Mild associated edema in the area of suspected infarct. No significant mass effect or midline shift. 4. Mild small vessel changes with moderate parenchymal volume loss.
== END 2019-11-24 13:30 | disposition home or self-care (01) ==
LOC: RADWPI 13:34
PROVIDERS: Family Provider Family Medicine; PCP Family Medicine; Visit Provider Specialist
DX: I63.9 Cerebral infarction, unspecified (principal)
CPT/HCPCS: 70544; 70551

== ENCOUNTER 2019-12-22 14:40 | Outpatient (CLI) | payer MEDICARE, SELFPAY ==
--- NOTE | 2019-12-22 14:49 | USCV_ITS ---
Shauna Birmingham Age: 69 Gender: F : 1950 Exam Date: 12/22/2019 14:48 Ordering Phys: Betty Hagen MD Technologist: Exam Location: [facility] [place] Indication: CVA BP: 110 / 70 HR: Rhythm: Sinus Technical Quality: Fair MEASUREMENTS (Male / Female) Normal Values 2D ECHO LV Diastolic Diameter PLAX 4.7 cm 4.2 - 5.9 / 3.9 - 5.3 cm LV Systolic Diameter PLAX 4.1 cm IVS Diastolic Thickness 0.9 cm 0.6 - 1.0 / 0.6 - 0.9 cm IVS Systolic Thickness 1.1 cm LVPW Diastolic Thickness 1.0 cm 0.6 - 1.0 / 0.6 - 0.9 cm LVPW Systolic Thickness 1.2 cm LVOT Diameter 2.0 cm LV Ejection Fraction 2D Teich 30.2 % LV Ejection Fraction MOD 2C 60.7 % LV Ejection Fraction 2C AL 61.6 % LA Diameter 3.2 cm LA Width 4.5 cm LA Height 5.1 cm RA Width 4.0 cm RA Height 3.7 cm M-MODE LV Diastolic Diameter MM 4.9 cm 4.2 - 5.9 / 3.9 - 5.3 cm LV Systolic Diameter MM 4.1 cm LV Ejection Fraction MM Teich 35.4 % IVS Diastolic Thickness MM 0.6 cm 0.6 - 1.0 / 0.6 - 0.9 cm IVS Systolic Thickness MM 1.3 cm LVPW Diastolic Thickness MM 0.8 cm 0.6 - 1.0 / 0.6 - 0.9 cm LVPW Systolic Thickness MM 1.6 cm RV Diastolic Diameter MM 1.5 cm Aortic Annulus Diameter 3.1 cm LA Ao Ratio MM 1.0 MV E Point Septal Separation 1.9 cm DOPPLER AV Peak Velocity 89.0 cm/s LVOT Peak Velocity 86.0 cm/s AV Area Cont Eq vti 3.0 cm squared AV Area Cont Eq pk 3.1 cm squared MV Area PHT 3.4 cm squared Mitral E to A Ratio 1.5 MV E' Velocity 7.0 cm/s Mitral E to MV E' Ratio 10.2 Mitral E to LV E' Lateral Ratio 10.6 Mitral E to LV E' Septal Ratio 9.9 TR Peak Velocity 324.0 cm/s TR Peak Gradient 41.9 mmHg TV Peak E Velocity 101.0 cm/s Right Atrial Pressure 3.0 mmHg Pulmonary Artery Systolic Pressu 45.0 mmHg PV Peak Velocity 94.0 cm/s FINDINGS Left Ventricle Mild diffuse hypokinesia of the LV apex. Ejection fraction around 50% Right Ventricle Normal right ventricular size and systolic function. Right Atrium Right atrium is upper limit of normal size Left Atrium Mildly increased left atrial size. Mitral Valve Thickened mitral valve. Mild mitral valve regurgitation. Aortic Valve Thickened aortic valve. Tricuspid Valve Moderately severe tricuspid valve regurgitation. Pulmonic Valve No gross abnormalities noted Pericardium No pericardial effusion. Aorta Normal aortic annulus size. CONCLUSIONS Normal LV size with slightly diminished ejection fraction 50%. Wall motion normality as mentioned above. Mild biatrial enlargement Mildly increased left atrial size. Moderately severe eccentric tricuspid valve regurgitation. Thickened aortic and mitral valves. Estimated pulmonary artery peak systolic pressure of 42 mmHg There is no pericardial effusion. There are no intracardiac masses. There is no pericardial effusion. There are no intracardiac masses. There are no prior echocardiogram studies to compare. Dr Karthik Núñez MD FACC (Electronically Signed) Final Date: 25 Dec 2019 09:40 S
== END 2019-12-22 14:41 | disposition home or self-care (01) ==
LOC: RAD 14:44
PROVIDERS: Family Provider Family Medicine; PCP Family Medicine; Visit Provider Specialist
DX: I63.9 Cerebral infarction, unspecified (principal); I08.3 Combined rheumatic disorders of mitral, aortic and tricuspid valves
CPT/HCPCS: 93306

== ENCOUNTER → 2020-02-27 15:14 | Outpatient (BNVA) | payer MEDICARE, SELFPAY | PROVIDERS: Family Provider Family Medicine; PCP Family Medicine; Visit Provider Specialist | DX: I63.512 Cerebral infarction due to unspecified occlusion or stenosis of left middle cerebral artery (principal); I47.2 Ventricular tachycardia | CPT/HCPCS: 99215 ==

== ENCOUNTER 2021-03-06 12:02 | Outpatient (CLI) | payer MEDICARE, SELFPAY ==
--- NOTE | 2021-03-06 12:11 | XR_ITS ---
WS: [id number] Right hand, 3 views, 03/06/2021 Clinical Data: RIGHT HAND PAIN Comparison: Right hand, 02/21/2019. Findings: No fractures or dislocations are seen. The soft tissues are unremarkable. There is osteoa rthritis of the right first MCP joint.There is a healed fracture of the distal right fifth metacarpal . 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
== END 2021-03-06 12:03 | disposition home or self-care (01) ==
LOC: RAD 12:08
PROVIDERS: PCP Family Medicine
DX: M79.641 Pain in right hand (principal); M19.041 Primary osteoarthritis, right hand
CPT/HCPCS: 73130

== ENCOUNTER 2022-08-03 14:42 | Outpatient (CLI) | payer MEDICARE, SELFPAY ==
--- NOTE | 2022-08-03 15:00 | CTR_ITS ---
PROCEDURE INFORMATION: Exam: CT Neck With Contrast Exam date and time: 08/03/2022 3:07 PM Age: 71 years old Clinical indication: Mass, lump, or swelling in neck; Left; Prior surgery; Surgery type: Thyroid; Additional info: Neck mass, soft tissue CT of neck. History--soft tissue mass left side of neck x 2 months-bb TECHNIQUE: Imaging protocol: Computed tomography of the neck with contrast. Radiation optimization: All CT scans at this facility use at least one of these dose optimization techniques: automated exposure control; mA and/or kV adjustment per patient size (includes targeted exams where dose is matched to clinical indication); or iterative reconstruction. Contrast material: OMNIPAQUE 350; Contrast volume: 60 ml; Contrast route: INTRAVENOUS (IV); COMPARISON: MR head wo con* [id number] 11/24/2019 2:02 PM RADIATION DOSE METRICS: Total DLP (mGy-cm): 144.61 FINDINGS: Paranasal sinuses: The right maxillary sinus contains a small retention cyst measuring about 13 mm. Pharynx: No focal mucosal space suspicious lesion is noted. Larynx: Unremarkable. Epiglottis is unremarkable. Prevertebral and retropharyngeal spaces: Unremarkable. Salivary glands: Within normal limits. Glands are normal in size. Thyroid: Absent right lobe of thyroid. The left lobe of thyroid is large and mildly heterogenous. Lymph nodes: No bulky lymphadenopathy identified. Trachea: Visualized trachea is unremarkable. Lungs: Unremarkable as visualized. Bones/joints: Old moderate T4 compression. Vasculature: Diffuse vascular calcifications are visualized. Soft tissues: Unremarkable. No significant soft tissue swelling. CT/CT neck w con* [id number] IMPRESSION: 1. No acute process is identified. 2. At the left lower neck skin marker, there is no mass lesion identified. This is at the same level of the large left lobe of thyroid, however. Advise correlation. The right lobe of thyroid is absent. 3. A few chronic findings.
[2022-08-03] MEDS: iohexol 350 mg/mL 500 mL Btl (per mL) IV (15:38)
== END 2022-08-03 14:43 | disposition home or self-care (01) ==
PROVIDERS: PCP Family Medicine; Visit Provider Family Medicine
DX: R22.2 Localized swelling, mass and lump, trunk (principal); R61 Generalized hyperhidrosis
CPT/HCPCS: 70491; 71260; Q9967

== ENCOUNTER 2022-08-03 14:42 | Outpatient (CLI) | payer MEDICARE, SELFPAY ==
--- NOTE | 2022-08-03 14:30 | CTR_ITS ---
PROCEDURE INFORMATION: Exam: CT Chest With Contrast; Diagnostic Exam date and time: 08/03/2022 3:12 PM Age: 71 years old Clinical indication: Other: Mass neck; Prior surgery; Surgery type: Thyroid; Patient HX: History--soft tissue mass left side of neck x 2 months-bb; Additional info: Neck mass TECHNIQUE: Imaging protocol: Diagnostic computed tomography of the chest with contrast. Radiation optimization: All CT scans at this facility use at least one of these dose optimization techniques: automated exposure control; mA and/or kV adjustment per patient size (includes targeted exams where dose is matched to clinical indication); or iterative reconstruction. Contrast material: OMNIPAQUE 350; Contrast volume: 60 ml; Contrast route: INTRAVENOUS (IV); COMPARISON: CT neck w con* [id number] 08/03/2022 3:07 PM RADIATION DOSE METRICS: Total DLP (mGy-cm): 503.3 FINDINGS: Thyroid: Unchanged unilateral left thyroid measuring 3.9 x 1.9 x 4.2 cm. There are smaller confluent thyroid nodules with indistinct margins estimated to measure to 1.5 cm. The right lobe of the thyroid is absent. Lungs: The lungs are clear. No mass or pneumonia. Pleural spaces: Unremarkable. No pneumothorax. No pleural effusion. Heart: The left atrium is enlarged. Coronary arteries: Moderate calcified plaque in the coronary arteries. Lymph nodes: No lower cervical adenopathy. Vasculature: Scattered calcified plaque in the aortic arch. Liver: The visualized portions of the liver and spleen are unremarkable. Kidneys and ureters: Simple 1.5 cm right renal cyst. Bones/joints: Chronic healed manubrium fracture. Chronic T9 and T4 fractures without retropulsion. Soft tissues: Unremarkable. CT/CT chest w con* [id number] IMPRESSION: 1. Unilateral left thyroid with multiple solid nodules. This is most likely multinodular goiter. 2. No adenopathy. 3. Other chronic findings as described COMMENTS: Consistent with the [employer]'s Incidental Findings Committee white paper (J Am Riya Radiol 2018): Any incidental renal lesion less than 1 cm or classified as too small to characterize, or any incidental cystic renal lesion characterized as simple-appearing, is likely benign. No follow-up imaging is recommended for these lesions per consensus recommendations based on imaging criteria.
[2022-08-03] MEDS: iohexol 350 mg/mL 500 mL Btl (per mL) IV (15:40)
== END 2022-08-03 14:43 | disposition home or self-care (01) ==
LOC: RAD 14:43
PROVIDERS: PCP Family Medicine; Visit Provider Family Medicine
DX: R22.2 Localized swelling, mass and lump, trunk (principal); R61 Generalized hyperhidrosis
CPT/HCPCS: 71260; 80053; 84443; 85025; 85651; 86140; Q9967

== ENCOUNTER → 2022-09-07 13:58 | Outpatient (BNVA) | payer MEDICARE, SELFPAY | PROVIDERS: PCP Family Medicine; Visit Provider Internal Medicine Cardiovascular Disease | DX: R00.2 Palpitations (principal); E78.5 Hyperlipidemia, unspecified; Z86.73 Personal history of transient ischemic attack (TIA), and cerebral infarction without residual deficits | CPT/HCPCS: 99213; Q3014 ==

== ENCOUNTER 2023-04-29 09:33 | Emergency (ER) | payer MEDICARE, SELFPAY ==
[2023-04-29 09:36] VITALS: BP 132/82; PULSE 63; RESP 16; TEMP 36.7; O2SAT 98; BMI 22.1
--- NOTE | 2023-04-29 09:55 | XR_ITS ---
WS: [id number] Right clavicle, 2 views, 04/29/2023 Clinical Data: trauma Comparison: None. Findings: There is an anterior subcoracoid dislocation of the right humeral head. The clavicle is intact with n o fractures or dislocations. Impression: Anterior subcoracoid dislocation of the right humeral head.
--- NOTE | 2023-04-29 09:55 | XR_ITS ---
WS: [id number] Right shoulder, 3 views, 04/29/2023 Clinical Data: trauma Comparison: None. Findings: There is an anterior subcoracoid dislocation of the right humeral head. The AC joint is intact. The a djacent right ribs and right scapula are unremarkable. Impression: Anterior subcoracoid dislocation of right humeral head.
--- NOTE | 2023-04-29 10:04 | W.ED.EXTPRO ---
HPI - Extremity Problem General: Chief complaint: Extremity Injury, Upper Stated complaint: injured collar bone Time Seen by Provider: 04/29/23 09:35 Source: patient Mode of arrival: ambulatory History of Present Illness: 72-year-old female who presents to the emergency room with complaints of left shoulder pain. She had tripped and fallen landed on her left shoulder. Did not strike her head no loss consciousness complaining of severe pain in the right shoulder. No other injuries. MD Complaint: joint pain Onset (ago): minute(s) Pain Consistency: constant Location: right (Shoulder) Quality: sharp Radiation: distal Relieving factors: rest Exacerbating factors: range of motion and palpation Associated symptoms: Deny chest pain, fever(s) or short of breath Review of Systems Const: Denies: fever(s) or chills Card: Denies: chest pain Resp: Denies: dyspnea GI: Denies: abdominal pain PFS ED PFSH: Medical History CVA (cerebral vascular accident) HLD (hyperlipidemia) Hypothyroidism Thyroid goiter Surgical History H/O thyroidectomy Hx of tubal ligation Family History Mother Stroke Sister Stroke Other Cancer Diabetes Hypertension Denies family history of CAD (coronary artery disease) Social History Smoking and tobacco status: never smoked Alcohol intake: current Alcohol intake frequency: few times a week Alcohol type: wine Substance/Drug Use: never Lives independently: Yes Marital status: Physical Exam Const: GENERAL APPEARANCE: cooperative ORIENTATION/CONSCIOUSNESS: Yes awake, Yes oriented to person, Yes oriented to place and Yes oriented to time HENMT: COMMON NORMALS: normocephalic, atraumatic and hearing grossly normal bilaterally HEAD & SCALP: normocephalic and atraumatic Resp: COMMON NORMALS: normal respiratory effort, No retractions, No use of accessory muscles and clear to auscultation bilaterally AUSCULTATION: clear to auscultation bilaterally Cardio: COMMON NORMALS: regular rate, regular rhythm and No murmurs present (Cardio) RATE: regular rate RHYTHM: regular rhythm Extremity: OTHER: Neurovascular right arm is intact on palpation and physical exam appears to have an anterior dislocation Neuro: SENSORIUM/ORIENTATION: Yes oriented to person, Yes oriented to place and Yes oriented to time Skin: COMMON NORMALS: no rashes or lesions noted GENERAL SKIN EXAM: no rashes or lesions noted Procedures Orthopedic Joint Reduction Joint #1: Time Out Performed: Yes Side: right Joint Reduction Location: shoulder Analgesia: procedural sedation Shoulder Technique Used (if applicable): traction/counter-traction Post-reduction neuro exam: intact Post-reduction vascular: intact Post Reduction X-Ray Obtained: Yes Post Reduction X-Ray Results: reduced Splint Applied: Yes Patient Tolerated Procedure: well Procedural Sedation Indication: fracture/dislocation reduction Fentanyl dose (mcg): 99 Midazolam dose (mg): 3 Complications: hypoxia Interventions: oxygen applied, airway repositioned, suctioning, assist by BVM, non-invasive ventilation and other (Nasopharyngeal airway applied) Additional Comments: Within 1 minute of the fentanyl patient went into respiratory arrest which was recognized immediately and [id number] with oxygen supplement mentation was applied. Patient responded well to this. After nasopharyngeal airway was applied we are able to bag the patient back up to 100% until she recovered well enough to breathe spontaneously on her own. Course Vital Signs: Vital signs: Vital Signs Temperature 98.0 F 04/29/23 09:36 Pulse Rate 63 04/29/23 14:06 Respiratory Rate 15 04/29/23 14:06 Blood Pressure 128/80 04/29/23 10:43 Pulse Oximetry 95 04/29/23 14:06 Oxygen Delivery Me thod Room Air 04/29/23 12:39 MDM - Extremity (Nontraumatic) Medical Decision Making Right shoulder reduced. Patient did have some difficulty with conscious sedation she was monitored she did fully recover she has been placed in a shoulder immobilizer. We will discharge patient home and have her follow-up with orthopedics pain medications given. Medical Records I reviewed the patient's medical records. Lab Data I reviewed the patient's lab results. Discharge Plan Discharge Patient Disposition: Home Clinical Impression: Dislocation of shoulder region Condition: Stable Prescriptions: New hydrocodone-acetaminophen 5-325 mg tablet 1 tab PO Q6H PRN (Reason: pain) Qty: 15 0RF No Action magnesium oxide 400 mg magnesium capsule 400 mg PO DAILY Qty: 90 3RF aspirin 325 mg tablet 325 mg PO DAILY Qty: 90 3RF triamcinolone acetonide 0.5 % cream 1 applic topical BID Qty: 15 2RF atorvastatin 40 mg tablet 40 mg PO DAILY Qty: 90 3RF levothyroxine 50 mcg tablet 50 mcg PO DAILY Qty: 90 3RF Discharge Orders: Discharge ED (Routine); Ordered 04/29/23 Ordered By: Thomas Zimmer Referrals: Giancarlo Bishop MD [Primary Care Provider] - Patient Instructions: Shoulder Dislocation (ED), Opioid Safety, Pain Management Activity Restrictions/Additional Instructions: You are seen today for a shoulder dislocation. This was reduced while you are in the ER you should wear the shoulder immobilizer until you follow-up with orthopedics. Case management make arrangements for follow-up with orthopedics. Coding Level of Care Code ED Financial Operations Clerk for Cesilia Kitchen
[2023-04-29 10:43] VITALS: BP 128/80; PULSE 67; RESP 17; O2SAT 100
[2023-04-29] MEDS: midazolam 1 mg/mL INJ 2 mL 3 MG IVP (10:43)
[2023-04-29] MEDS: fentaNYL 50 mcg/mL INJ 2mL 100 MCG IVP (10:43)
--- NOTE | 2023-04-29 10:56 | XR_ITS ---
WS: [id number] Right shoulder, 3 views, 04/29/2023, 1105 hours Clinical Data: Postreduction Comparison: Right shoulder, 04/29/2023, 1046 hours Findings: The anterior subcoracoid dislocation has been reduced. There are monitor leads on the chest wall. Impression: Reduction of anterior subcoracoid dislocation of the right shoulder.
--- NOTE | 2023-04-29 11:35 | PC.NURSE ---
200 mcg of fentanyl drawn up for concious sedation, only 100mcg used. wasted the other 100mcg with MARILEE Johnson
--- NOTE | 2023-04-29 12:04 | DCPLANNER ---
Addendum entered by Sherry Roche 04/30/23 09:32: Patient has a follow up appointment scheduled for Thursday, May 04, 2023 at 3:00 with Jordon Nick at ortho. Original Note: aquaculture farm manager had message to schedule a follow up appointment for patient with ortho. aquaculture farm manager sent patients information to the front office staff at ortho. Patients information will be printed and reviewed. Clinic will call patient with appointment information.
[2023-04-29] MEDS: ondansetron 2 mg/ML SDV 2 mL 4 MG IVP (12:09)
[2023-04-29 12:11] VITALS: PULSE 71; RESP 18; O2SAT 95
[2023-04-29 12:39] VITALS: PULSE 67; RESP 17; O2SAT 99
[2023-04-29 14:06] VITALS: PULSE 63; RESP 15; O2SAT 95
== END 2023-04-29 14:08 | disposition home or self-care (01) ==
PROVIDERS: Emergency Provider Family Medicine; PCP Family Medicine
DX: S43.004A Unspecified dislocation of right shoulder joint, initial encounter (principal); Z86.73 Personal history of transient ischemic attack (TIA), and cerebral infarction without residual deficits; E78.5 Hyperlipidemia, unspecified; W01.0XXA Fall on same level from slipping, tripping and stumbling without subsequent striking against object, initial encounter
CPT/HCPCS: 23650; 73000; 73030; 96374; 99152; 99285; J2250; J2405; J3010

== ENCOUNTER → 2023-05-04 15:06 | Outpatient (BNVA) | payer MEDICARE, SELFPAY | PROVIDERS: PCP Family Medicine; Referring Provider Family Medicine; Visit Provider Physician Assistant | DX: S43.004A Unspecified dislocation of right shoulder joint, initial encounter; X58.XXXA Exposure to other specified factors, initial encounter | CPT/HCPCS: 73030; 99203 ==

== ENCOUNTER 2023-05-19 13:20 | Outpatient (RCR) | payer MEDICARE, SELFPAY | END 2023-05-22 23:59 | disposition home or self-care (01) | LOC: SPT 13:20 | PROVIDERS: PCP Family Medicine; Visit Provider Physician Assistant | DX: S43.004D Unspecified dislocation of right shoulder joint, subsequent encounter (principal); X58.XXXD Exposure to other specified factors, subsequent encounter | CPT/HCPCS: 97161 ==

== ENCOUNTER 2023-05-25 12:53 | Outpatient (RCR) | payer MEDICARE, SELFPAY | END 2023-06-22 23:59 | disposition home or self-care (01) | LOC: SPT 12:53 | PROVIDERS: PCP Family Medicine; Visit Provider Physician Assistant | DX: S43.004D Unspecified dislocation of right shoulder joint, subsequent encounter (principal); X58.XXXD Exposure to other specified factors, subsequent encounter | CPT/HCPCS: 97110 ==

== ENCOUNTER → 2023-06-15 10:49 | Outpatient (BNVA) | payer MEDICARE, SELFPAY | PROVIDERS: PCP Family Medicine; Visit Provider Physician Assistant | DX: S43.004A Unspecified dislocation of right shoulder joint, initial encounter (principal); X58.XXXA Exposure to other specified factors, initial encounter | CPT/HCPCS: 99213 ==

== ENCOUNTER 2023-06-23 12:50 | Outpatient (CLI) | payer MEDICARE, SELFPAY ==
--- NOTE | 2023-06-23 13:11 | MM_ITS ---
WS: [id number] BILATERAL 3D TOMOSYNTHESIS DIGITAL SCREENING MAMMOGRAPHY WITH CAD CLINICAL INFORMATION: Z00.00 - Encounter for general adult medical examination ... HISTORY: Screening mammogram. No current complaints. COMPARISON: 2014 TECHNIQUE: Bilateral CC and MLO views. FINDINGS: The breasts are composed of heterogeneous fibroglandular density tissue, which can limit the detectio n of small underlying mass lesions. No suspicious mass, asymmetry, calcifications, or architectural d istortion. No evidence of malignancy. Dystrophic calcification RIGHT breast. IMPRESSION: MM/[place] [id number] BI-RADS: 2-Benign FOLLOW UP: 1 Year Follow-up Recommend return to annual screening mammography.
== END 2023-06-23 12:51 | disposition home or self-care (01) ==
LOC: RAD 12:50
PROVIDERS: PCP Family Medicine; Visit Provider Family Medicine
DX: Z12.31 Encounter for screening mammogram for malignant neoplasm of breast (principal)
CPT/HCPCS: 77063; 77067

== ENCOUNTER → 2023-09-22 14:30 | Outpatient (BNVA) | payer MEDICARE, SELFPAY | PROVIDERS: PCP Family Medicine; Visit Provider Family Medicine | DX: I63.512 Cerebral infarction due to unspecified occlusion or stenosis of left middle cerebral artery (principal); R61 Generalized hyperhidrosis; E04.9 Nontoxic goiter, unspecified | CPT/HCPCS: 80053; 80061; 84443 ==

== ENCOUNTER 2024-05-20 19:54 | Emergency (ER) | payer MEDICARE, SELFPAY ==
[2024-05-20 20:22] VITALS: BP 99/61; PULSE 57; RESP 16; TEMP 37.3; O2SAT 94; BMI 21.7
--- NOTE | 2024-05-20 20:30 | ECG_ITS ---
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 Measurements Intervals [place] Rate: 64 P: 61 KS: 144 QRS: -18 QRSD: 93 T: 19 QT: 408 QTc: 422 Interpretive Statements SINUS RHYTHM WITH FREQUENT SUPRAVENTRICULAR PREMATURE COMPLEXES INCOMPLETE RIGHT BUNDLE BRANCH BLOCK [90+ ms QRS DURATION, TERMINAL R IN V1/V2, 40+ ms S IN I/aVL/V4/V5/V6] ANTEROSEPTAL MYOCARDIAL INFARCTION , OF INDETERMINATE AGE [40+ ms Q WAVE IN V1-V4] Compared to ECG 11/13/2019 14:33:42 Sinus bradycardia no longer present Myocardial infarct finding still present Electronically Signed On 05-22-2024 18:50:06 CDT by Lloyd Gonzalez M.D. [email or web address]
--- NOTE | 2024-05-20 20:32 | XRR_ITS ---
PROCEDURE INFORMATION: Exam: XR Chest Exam date and time: 05/20/2024 8:50 PM Age: 73 years old Clinical indication: Cough and fever; Additional info: Cough, covid TECHNIQUE: Imaging protocol: Radiologic exam of the chest. Views: 1 view. COMPARISON: CT chest w con* [id number] 08/03/2022 3:12 PM FINDINGS: Lungs: No focal consolidation. Pleural spaces: No evidence of pneumothorax. No evidence of pleural effusion. Heart/Mediastinum: Cardiomediastinal silhouette is within normal limits. Bones/joints: No evidence of acute osseous abnormality. XR/XR chest 1V portable [id number] IMPRESSION: 1. No acute cardiopulmonary abnormality.
--- NOTE | 2024-05-20 20:56 | ED_ITS ---
HPI - SOB/Dyspnea 2 General: Chief Complaint: Shortness of Breath/Dyspnea Stated Complaint: covid +, SOB Time Seen by Provider: 05/20/24 20:56 History of Present Illness: HPI Narrative: 73-year-old female tested positive for C OVID on . Patient spouse states that they called the doctor's office and he had sent in a prescription for Paxlovid. Patient has been taking the medication but she continues to run a fever. brought her in to have her evaluated concerned that she may be filling up with fluid in her lungs. Patient reports that she has no shortness of breath or chest pain. Patient does have an occasional cough. Has been states that she sounds wheezy which is what concerned him. Related Data Previous Rx's Medication Instructions Recorded aspirin 325 mg tablet 325 mg PO DAILY #90 tabs 09/07/22 magnesium oxide 400 mg PO DAILY #90 caps 09/07/22 triamcinolone acetonide 0.5 % 1 applic topical BID #15 grams 12/30/22 topical cream hydrocodone 5 mg-acetaminophen 325 1 tab PO Q6H PRN pain #15 tabs 04/29/23 mg tablet prednisone 20 mg tablet 20 mg PO DAILY #15 tabs 06/15/23 levothyroxine 50 mcg tablet 50 mcg PO DAILY #90 tabs 09/02/23 atorvastatin 40 mg tablet 40 mg PO DAILY #90 tabs 09/20/23 ondansetron 4 mg disintegrating 4 mg PO Q8H PRN nausea and 05/20/24 tablet vomiting #10 tabs Allergies Allergy/AdvReac Type Severity Reaction Status Date / Time No Known Allergies Allergy Verified 06/15/23 10:58 Review of Systems 2 General: Reports: 10 or more systems reviewed and unremarkable except in HPI and below Resp: Reports: productive cough PFSH ED 2 PFSH: Medical History Thyroid goiter CVA (cerebral vascular accident) Hypothyroidism HLD (hyperlipidemia) Surgical History Hx of tubal ligation H/O thyroidectomy Family History Mother Stroke Sister Stroke Other Cancer Diabetes Hypertension Denies family history of CAD (coronary artery disease) Social History Smoking and tobacco/nicotine status: never used tobacco/nicotine Alcohol intake: current Alcohol intake frequency: few times a week Alcohol type: wine Substance/Drug Use: never Lives independently: Yes Marital status: Physical Exam 2 Const: COMMON NORMALS: alert HENMT: COMMON NORMALS: normocephalic HEAD & SCALP: normocephalic Neck/C-Spine: COMMON NORMALS: full ROM Resp: COMMON NORMALS: normal respiratory effort and clear to auscultation bilaterally AUSCULTATION: clear to auscultation bilaterally Cardio: COMMON NORMALS: regular rate and regular rhythm RATE: regular rate RHYTHM: regular rhythm GI: COMMON NORMALS: Soft to palpation and non-tender PALPATION: Yes Soft to palpation Back/Pelvis: COMMON NORMALS: thoracic and lumbar spine normal to inspection Extremity: COMMON NORMALS: no pedal edema Neuro: SENSORIUM/ORIENTATION: Yes alert Skin: COMMON NORMALS: turgor normal GENERAL SKIN EXAM: turgor normal Course 2 Vital Signs: Vital signs: Vital Signs Temperature 99.1 F 05/20/24 20:22 Pulse Rate 50 L 05/20/24 21:35 Respiratory Rate 16 05/20/24 21:35 Blood Pressure 96/60 05/20/24 21:35 Pulse Oximetry 95 05/20/24 21:35 Oxygen Delivery Me thod Room Air 05/20/24 21:35 MDM - SOB/Dyspnea Medical Decision Making 73-year-old female comes in today for complaints of COVID infection, mild confusion, and fever. states that when her fever was hide tonight she seemed kind of confused he is giving her Tylenol and she seems more appropriate now. Patient did have 1 emesis in the ER. Lungs are clear to auscultation. Vital signs note a 99/61 blood pressure, pulse 57, respirations 16, patient temperature was 99.1, patient is 94% on room air. CBC was unremarkable. CMP did note creatinine of 1.0, bun of 24, sodium 132, potassium 3.6. Chest x-ray was unremarkable except for some mild atelectasis in the left lower lung. Reviewed exam with patient with recommendation for treatment and follow-up. Patient reported understanding agreed to plan. Lab Data 05/20/24 21:34 05/20/24 21:34 Labs/Radiology: Laboratory Results WBC 6.68 10^3/uL (3.29-11.43) 05/20/24 21:34 RBC 4.03 10^6/uL (3.85-5.65) 05/20/24 21:34 Hgb 12.40 g/dL (11.27-16.99) 05/20/24 21:34 Hct 38.2 % (36-47) 05/20/24 21: MCV 94.8 fl (85-98) 05/20/24 21:34 MCH 30.8 pg (27-33) 05/20/24 21:34 MCHC 32.5 g/dL (30-55) 05/20/24 21:34 RDW 12.7 % (12.1-15.1) 05/20/24 21:34 Plt Count 156 10^3/cmm (157-399) L 05/20/24 21:34 MPV 9.4 fL (7.4-10.4) 05/20/24 21:34 Neut % (Auto) 78.9 % 05/20/24 21:34 Lymph % (Auto) 11.4 % 05/20/24 21:34 [place] % (Auto) 9.3 % 05/20/24 21:34 Eos % (Auto) 0.0 % 05/20/24 21:34 Baso % (Auto) 0.3 % 05/20/24 21:34 Neut # (Auto) 5.27 10^3/uL (1.8-7.7) 05/20/24 21:34 Lymph # (Auto) 0.8 10^3/uL (0.8-4.8) 05/20/24 21:34 [place] # (Auto) 0.6 10^3/uL (0.2-0.9) 05/20/24 21: Eos # (Auto) 0.0 10^3/uL (0.0-0.8) 05/20/24 21:34 Baso # (Auto) 0.0 10^3/uL (0.0-0.1) 05/20/24 21:34 Nucleated RBC % (auto) 0 % 05/20/24 21:34 Nucleated RBCs # 0.0 /100WBC 05/20/24 21:34 Sodium 132 mmol/L (136-145) L 05/20/24 21:34 Potassium 3.6 mmol/L (3.5-5.1) 05/20/24 21:34 Chloride 96 mmol/L (98-107) L 05/20/24 21:34 Carbon Dioxide 24 mmol/L (22-29) 05/20/24 21:34 Anion Gap 15.6 (5-19) 05/20/24 21:34 BUN 18 mg/dL (8-23) 05/20/24 21:34 Creatinine 1.0 mg/dL (0.5-0.9) H 05/20/24 21:34 GFR Calculation Not Reportable 05/20/24 21:34 Glucose 129 mg/dL (65-115) H 05/20/24 21:34 Calculated Osmolality 278 mOsm/kg (285-295) L 05/20/24 21:34 Lactic Acid 0.9 mmol/L (0.5-2.2) 05/20/24 21:34 Calcium 7.9 mg/dL (8.5-10.5) L 05/20/24 21:34 Total Bilirubin 0.6 mg/dL (0.15-1.2) 05/20/24 21:34 AST 19 U/L (0-32) 05/20/24 21:34 ALT 13 U/L (0-33) 05/20/24 21:34 Alkaline Phosphatase 69 U/L (35-105) 05/20/24 21:34 Total Protein 6.4 g/dL (6.6-8.7) L 05/20/24 21:34 Albumin 3.5 g/dL (3.5-5.2) 05/20/24 21:34 Globulin 2.9 g/dL (1.3-4.6) 05/20/24 21:34 XR interpretation done by ED provider, pending radiology final review Discharge Plan Discharge Patient Disposition: Home Clinical Impression: Bronchitis due to 2019-nCoV Condition: Stable Prescriptions: New ondansetron 4 mg tablet,disintegrating 4 mg PO Q8H PRN (Reason: nausea and vomiting) Qty: 10 0RF No Action magnesium oxide 400 mg magnesium capsule 400 mg PO DAILY Qty: 90 3RF aspirin 325 mg tablet 325 mg PO DAILY Qty: 90 3RF atorvastatin 40 mg tablet 40 mg PO DAILY Qty: 90 3RF triamcinolone acetonide 0.5 % cream 1 applic topical BID Qty: 15 2RF prednisone 20 mg tablet 20 mg PO DAILY Qty: 15 0RF Rx Instructions: 60 mg X 3 days 40 mg X 2 days 20 mg X 2 days levothyroxine 50 mcg tablet 50 mcg PO DAILY Qty: 90 3RF hydrocodone-acetaminophen 5-325 mg tablet 1 tab PO Q6H PRN (Reason: pain) Qty: 15 0RF Discharge Orders: Discharge ED (Routine); Ordered 05/20/24 Ordered By: Kolby Bermudez Referrals: Giancarlo Bishop MD [Primary Care Provider] - Discharge Diet: Usual diet Discharge Activity: Increase activity as tolerated Patient Instructions: Acute Bronchitis (ED) Activity Restrictions/Additional Instructions: Home and rest. Drink plenty water and fluids. Use acetaminophen and/or ibuprofen for pain and discomfort. Follow-up with primary care as needed. Return to ED for worsening symptoms such as increasing shortness of breath, severe chest pain, or inability to hold down fluids. Coding Level of Care Code ED Boating Safety Officer for Cesilia Kitchen
[2024-05-20 21:35] VITALS: BP 96/60; PULSE 50; RESP 16; O2SAT 95
[2024-05-20 21:38] LABS: Basophils % 0.3 %; Hematocrit 38.2 % (36-47); Lymphocytes # 0.8 10^3/uL (0.8-4.8); Lymphocytes % 11.4 %; Mean Corpuscular HGB Conc 32.5 g/dL (30-55); Mean Corpuscular Hemoglobin 30.8 pg (27-33); Mean Corpuscular Volume 94.8 fl (85-98); Mean Platelet Volume 9.4 fL (7.4-10.4); Monocytes # 0.6 10^3/uL (0.2-0.9); Monocytes % 9.3 %; Neutrophils # 5.27 10^3/uL (1.8-7.7); Neutrophils % 78.9 %; Nucleated Red Blood Cells % 0 %; Platelet Count 156 10^3/cmm (157-399); Red Blood Count 4.03 10^6/uL (3.85-5.65); Red Cell Distribution Width 12.7 % (12.1-15.1); White Blood Count 6.68 10^3/uL (3.29-11.43)
[2024-05-20 21:59] LABS: Lactic Sepsis W/Reflex 0.9 mmol/L (0.5-2.2)
[2024-05-20 22:01] LABS: Alanine Aminotransferase 13 U/L (0-33); Albumin Level 3.5 g/dL (3.5-5.2); Alkaline Phosphatase 69 U/L (35-105); Anion Gap 15.6 (5-19); Aspartate Amino Transferase 19 U/L (0-32); Blood Urea Nitrogen 18 mg/dL (8-23); Calcium 7.9 mg/dL (8.5-10.5); Carbon Dioxide 24 mmol/L (22-29); Chloride 96 mmol/L (98-107); Globulin 2.9 g/dL (1.3-4.6); Glucose 129 mg/dL (65-115); Osmolality Calculated 278 mOsm/kg (285-295); Potassium 3.6 mmol/L (3.5-5.1); Sodium 132 mmol/L (136-145); Total Bilirubin 0.6 mg/dL (0.15-1.2); Total Protein 6.4 g/dL (6.6-8.7)
[2024-05-20 22:03] LABS: Creatinine Clr Calc Pharmacy 41.2509
[2024-05-20 23:41] VITALS: BP 96/54; PULSE 50; O2SAT 95
== END 2024-05-20 22:25 | disposition home or self-care (01) ==
PROVIDERS: Emergency Provider Nurse Practitioner Family; PCP Family Medicine
DX: U07.1 COVID-19 (principal); J40 Bronchitis, not specified as acute or chronic
CPT/HCPCS: 71045; 80053; 83605; 85025; 93005; 99285